=== PATIENT | female | born 1995 | race Two or more races ===

== ENCOUNTER 2021-09-21 13:59 | Outpatient (CLI) | payer OTHER | END 2021-09-21 15:30 | disposition home or self-care (01) | LOC: PRENATAL 13:59 | PROVIDERS: ATTEND Obstetrics & Gynecology Maternal & Fetal Medicine | DX: Z36.89 Encounter for other specified antenatal screening (principal); O36.80X1 Pregnancy with inconclusive fetal viability, fetus 1; Z3A.13 13 weeks gestation of pregnancy ==

== ENCOUNTER 2021-11-08 07:45 | Outpatient (CLI) | payer OTHER ==
[2021-11-08] MEDS ORDERED: PRENATAL CAPLE1 EAC1 (14:52)
[2021-11-08] MEDS ORDERED: FOLIC ACID20 MG (14:53)
[2021-11-08] MEDS ORDERED: PROMETRIUM200 MG PO (18:12)
[2021-11-08] MEDS ORDERED: KEFLEX750 MG PO (18:13)
[2021-11-08] MEDS ORDERED: METRONIDAZOLE500 MG PO (18:14)
== END 2021-11-08 09:45 | disposition home or self-care (01) ==
LOC: PRENATAL 07:45
PROVIDERS: ATTEND Obstetrics & Gynecology Maternal & Fetal Medicine
DX: O35.0XX1 Maternal care for (suspected) central nervous system malformation in fetus, fetus 1 (principal); O35.3XX1 Maternal care for (suspected) damage to fetus from viral disease in mother, fetus 1; O98.512 Other viral diseases complicating pregnancy, second trimester; Z36.89 Encounter for other specified antenatal screening; Z3A.20 20 weeks gestation of pregnancy

== ENCOUNTER 2021-11-08 08:00 | Emergency (ER) | payer OTHER ==
[~2021-11-08] VITALS: Ht 157.5 cm; Wt 67.6 kg
[2021-11-08] MEDS ORDERED: PRENATAL CAPLE1 EAC1 (14:52)
[2021-11-08] MEDS ORDERED: FOLIC ACID20 MG (14:53)
[2021-11-08] MEDS ORDERED: PROMETRIUM200 MG PO (18:12)
[2021-11-08] MEDS ORDERED: KEFLEX750 MG PO (18:13)
[2021-11-08] MEDS ORDERED: METRONIDAZOLE500 MG PO (18:14)
== END 2021-11-08 10:00 | disposition home or self-care (01) ==
LOC: CIR.AMB 08:00 → OBS/DEL 08:00 → CIR.AMB 10:00 → OBS/DEL 10:00 → LDR 14:15 → EDSTATUS 11-09 10:40
DX: O34.32 Maternal care for cervical incompetence, second trimester (principal); Z3A.20 20 weeks gestation of pregnancy; Z11.52 Encounter for screening for COVID-19

== ENCOUNTER 2022-01-11 08:45 | Outpatient (CLI) | payer OTHER ==
[~2022-01-11 08:45] MED LIST: FOLIC ACID20 MG; KEFLEX750 MG PO; METRONIDAZOLE500 MG PO; PRENATAL CAPLE1 EAC1; PROMETRIUM200 MG PO
== END 2022-01-11 09:46 | disposition home or self-care (01) ==
LOC: PRENATAL 08:45
PROVIDERS: ATTEND Obstetrics & Gynecology Maternal & Fetal Medicine
DX: O09.299 Supervision of pregnancy with other poor reproductive or obstetric history, unspecified trimester (principal); O34.30 Maternal care for cervical incompetence, unspecified trimester

== ENCOUNTER 2022-08-22 06:12 | Day surgery (SDC) | payer OTHER ==
[~2022-08-22 06:12] MED LIST changes: +PRENATAL PO; +[UNRECOGNIZED DRUG - OTHER]
== END 2022-08-22 14:25 | disposition home or self-care (01) ==
LOC: CIR.AMB 06:12
PROVIDERS: ATTEND Obstetrics & Gynecology Maternal & Fetal Medicine
DX: O34.31 Maternal care for cervical incompetence, first trimester (principal); Z3A.13 13 weeks gestation of pregnancy

== ENCOUNTER 2022-10-17 04:56 | Emergency (ER) | payer OTHER ==
[~2022-10-17] VITALS: Ht 157.5 cm; Wt 78.9 kg
[2022-10-17] MEDS ORDERED: PRENATABS RX T1 EACH (05:01)
== END 2022-10-17 11:35 ==
LOC: ER 04:56
DX: O26.899 Other specified pregnancy related conditions, unspecified trimester (principal); R10.2 Pelvic and perineal pain

== ENCOUNTER 2022-10-31 10:52 | Outpatient (CLI) | payer OTHER ==
[~2022-10-31 10:52] MED LIST changes: +PRENATABS RX T1 EACH
== END 2022-10-31 12:02 | disposition home or self-care (01) ==
LOC: NST 10:52
PROVIDERS: ATTEND Obstetrics & Gynecology Maternal & Fetal Medicine
DX: Z34.82 Encounter for supervision of other normal pregnancy, second trimester (principal)

== ENCOUNTER 2022-11-12 08:02 | Outpatient (CLI) | payer OTHER | END 2022-11-12 08:35 | disposition home or self-care (01) | LOC: NST 08:02 | PROVIDERS: ATTEND Obstetrics & Gynecology Maternal & Fetal Medicine | DX: Z34.82 Encounter for supervision of other normal pregnancy, second trimester (principal) ==

== ENCOUNTER 2022-11-21 09:21 | Outpatient (CLI) | payer OTHER | END 2022-11-21 10:22 | disposition home or self-care (01) | LOC: NST 09:21 | PROVIDERS: ATTEND Obstetrics & Gynecology Maternal & Fetal Medicine | DX: Z34.82 Encounter for supervision of other normal pregnancy, second trimester (principal) ==

== ENCOUNTER 2023-01-24 17:34 | Outpatient (CLI) | payer OTHER | END 2023-01-24 18:52 | disposition home or self-care (01) | LOC: NST 17:34 | PROVIDERS: ATTEND Obstetrics & Gynecology Gynecology | DX: Z34.83 Encounter for supervision of other normal pregnancy, third trimester (principal) ==

== ENCOUNTER 2023-02-03 14:19 | Inpatient (IN) | payer OTHER ==
[~2023-02-03] VITALS: Ht 157.5 cm; Wt 83.5 kg
[2023-02-03] MEDS ORDERED: NIFEDIPINE20 MG PO (15:06)
[2023-02-04] MEDS ORDERED: ENOXAPARIN40 MG/0.4 (14:35)
[2023-02-04] MEDS ORDERED: PROGESTERONE200 MG (14:35)
[2023-02-04] MEDS ORDERED: NIFEDIPINE ER30 M1 (14:35)
== END 2023-02-06 13:20 | disposition home or self-care (01) | DRG 807 ==
LOC: LDR 14:19 → OB/GYN 14:19
PROVIDERS: ADMIT Obstetrics & Gynecology; ATTEND Obstetrics & Gynecology
PROC: 4A1HXCZ Monitoring of Products of Conception, Cardiac Rate, External Approach (ICD-10-PCS; 2023-02-03)
PROC: 10E0XZZ Delivery of Products of Conception, External Approach (ICD-10-PCS; principal; 2023-02-04)
PROC: 0UQG7ZZ Repair Vagina, Via Natural or Artificial Opening (ICD-10-PCS; 2023-02-04)
DX: O71.4 Obstetric high vaginal laceration alone (principal); Z37.0 Single live birth; Z3A.36 36 weeks gestation of pregnancy; Z20.822 Contact with and (suspected) exposure to COVID-19

== ENCOUNTER 2025-03-03 05:38 | Day surgery (SDC) | payer OTHER ==
[2025-03-01 09:09] LABS: HEMATOCRIT 37.3 % (36.0-45.00); HEMOGLOBIN 12.7 g/dL (12.0-15.00); MEAN CORPUSCULAR HEMOGLOBIN 29.3 pg (27.00-32.0); MEAN CORPUSCULAR HGB CONC 34.1 g/dl (32.0-36.0); PLATELET COUNT 270 K/uL (150-450); RED BLOOD COUNT 4.34 M/uL (4.00-6.00); RED CELL DISTRIBUTION WIDTH 14.3 % (11.5-14.5)
[2025-03-01 09:51] LABS: INR 0.94; PARTIAL THROMBOPLASTIN TIME 27.6 SECONDS (22.0-34.0); PROTHROMBIN TIME 10.3 SECONDS (9.0-11.5)
[2025-03-01 09:56] LABS: ALBUMIN 3.2 gm/dL (3.4-5.0); BILIRUBIN TOTAL 0.42 mg/dL (0.3-1.2); CALCIUM 8.7 mg/dL (8.5-10.1); CREATININE SERUM 0.51 mg/dL (0.55-1.02); GFR 140.65; GLOBULINA 3.8 G/DL (2.4-3.5); POTASSIUM 3.96 mEq/L (3.5-5.1)
[~2025-03-03 05:38] MED LIST changes: +ENOXAPARIN40 MG/0.4; +NIFEDIPINE ER30 M1; +NIFEDIPINE20 MG PO; +PROGESTERONE200 MG
[2025-03-03] MEDS ORDERED: POVIDONE-IODINE 118 ML BOTT TOP ONE (07:05)
[2025-03-03] MEDS ORDERED: CITRIC ACID/SODIUM CITRATE 30 ML BLIST.PACK PO ONE (07:12)
== END 2025-03-03 11:40 | disposition home or self-care (01) ==
LOC: CIR.AMB 05:38
PROVIDERS: ATTEND Obstetrics & Gynecology Maternal & Fetal Medicine
DX: O34.32 Maternal care for cervical incompetence, second trimester (principal); Z3A.14 14 weeks gestation of pregnancy

== ENCOUNTER 2025-07-13 11:00 | Outpatient (CLI) | payer OTHER ==
[2025-07-13] MEDS ORDERED: PEPCID AC20 MG PO (18:05)
== END 2025-07-13 11:53 | disposition home or self-care (01) ==
LOC: NST 11:00
PROVIDERS: ATTEND Obstetrics & Gynecology
DX: Z34.83 Encounter for supervision of other normal pregnancy, third trimester (principal)

== ENCOUNTER 2025-07-13 12:51 | Outpatient (CLI) | payer OTHER ==
[2025-07-13] MEDS ORDERED: RINGERS SOLUTION,LACTATED 1,000 ML IV SCH ×2 (13:00→13:45)
[2025-07-13] MEDS ORDERED: MAGNESIUM SULFATE IN WATER 100 ML IV ONE (13:00)
[2025-07-13 13:01] VITALS: BP 103/69
[2025-07-13] MEDS ORDERED: MAGNESIUM SULFATE IN WATER 500 ML IV SCH (13:15)
[2025-07-13 15:15] VITALS: BP 97/67
[2025-07-13] MEDS ORDERED: PEPCID AC20 MG PO (18:05)
[2025-07-13 20:00] VITALS: BP 102/69
[2025-07-13 23:43] VITALS: BP 109/73
[2025-07-14 03:09] VITALS: BP 106/66
[2025-07-14 07:56] VITALS: BP 104/72; O2SAT 97
[2025-07-14 09:25] VITALS: BP 104/72
== END 2025-07-14 09:48 | disposition home or self-care (01) ==
LOC: OBS/DEL 12:51
PROVIDERS: ATTEND Obstetrics & Gynecology Gynecology
DX: O26.893 Other specified pregnancy related conditions, third trimester (principal); Z3A.32 32 weeks gestation of pregnancy

== ENCOUNTER 2025-08-19 08:21 | Outpatient (CLI) | payer OTHER ==
[2025-08-19 08:00] VITALS: BP 134/72
[2025-08-19 08:15] VITALS: BP 134/72
[~2025-08-19 08:21] MED LIST changes: +PEPCID AC20 MG PO
[2025-08-19 10:24] VITALS: BP 134/72
== END 2025-08-19 10:50 | disposition home or self-care (01) ==
LOC: OBS/DEL 08:21
PROVIDERS: ATTEND Obstetrics & Gynecology
DX: O26.893 Other specified pregnancy related conditions, third trimester (principal); Z3A.38 38 weeks gestation of pregnancy

== ENCOUNTER 2025-08-24 17:23 | Inpatient (IN) | payer OTHER ==
[~2025-08-24] VITALS: Ht 157.5 cm; Wt 88.0 kg
[2025-08-24 17:38] VITALS: BP 128/80
[2025-08-24 18:15] LABS: BASO % 0.2 % (0.1-1.2); EOS # 0.06 (0.04-0.54); EOS % 0.7 % (0.7-7.0); LYMPH # 1.45 (1.18-3.74); LYMPH % 17.7 % (19.3-53.1); MEAN PLATELET VOLUME 11.50 fl (9.4-12.4); MONO # 0.70 (0.24-0.82); MONO % 8.6 % (4.7-12.5); NEUT # 5.90 (1.56-6.13); NEUT % 72.2 % (34.0-71.1); RED CELL DISTRIBUTION WIDTH 14.7 % (11.6-14.4)
[2025-08-24] MEDS ORDERED: RINGERS SOLUTION,LACTATED 1,000 ML IV SCH (18:30)
[2025-08-24 18:45] LABS: INR 0.97
[2025-08-24 18:55] LABS: ALT/SGPT 16.0 U/L (12-78); AST/SGOT 20.0 U/L (15-37); BILIRUBIN TOTAL 0.44 mg/dL (0.3-1.2); BUN CREA RATIO 14.0 (7.0-25.0); CREATININE SERUM 0.86 mg/dL (0.55-1.02); GFR 76.96; GLOBULINA 3.3 G/DL (2.4-3.5); GLUCOSE FASTING 96.0 mg/dL (65-100); OSMOLALITY SERUM 281.0 MOSM/KG (275-295)
[2025-08-24 19:20] VITALS: BP 135/86
[2025-08-24 20:05] LABS: URINE APPEARANCE Cloudy; URINE BILIRRUBIN Small (NEGATIVE); URINE BLOOD Negative; URINE COLOR Dark Yellow; URINE GLUCOSE Negative (NEGATIVE); URINE KETONE Trace (NEGATIVE); URINE LEUKOCYTE Small; URINE NITRATE Negative; URINE UROBILINOGEN 1.0 E.U./dl
[2025-08-24 20:06] LABS: URINE CAST 9.23 uL (0.0-1.40); URINE EPITHELIAL CELLS 34.4 uL (0.0-38.8); URINE RBC 6.1 uL (0.0-20.8); URINE WBC 288.9 uL (0.0-23.2)
[2025-08-24 20:36] LABS: URINE BACTERIA > 9821.5 uL (0.0-1933); URINE PROTEIN 300 (NEGATIVE)
[2025-08-24 23:33] VITALS: BP 131/79
[2025-08-25 03:13] VITALS: BP 132/83
[2025-08-25] MEDS ORDERED: OXYTOCIN 500 ML IV ONE (07:00)
[2025-08-25 07:34] VITALS: BP 130/72
[2025-08-25 11:20] VITALS: BP 120/72
[2025-08-25] MEDS ORDERED: LIDOCAINE HCL 1% 10ML VIAL ONE (12:24)
[2025-08-25] MEDS ORDERED: CHLORHEXIDINE GLUCONATE 120 ML BOTTLE TOP ONE ×2 (12:24→15:30)
[2025-08-25] MEDS ORDERED: OXYTOCIN 20 UNITS/1000ML RL PIGGYBAG IV ONE (12:24)
[2025-08-25] MEDS ORDERED: ERYTHROMYCIN BASE OPHT 1GM EACH TUBE OP ONE ×2 (12:24→15:30)
[2025-08-25 15:00] VITALS: BP 124/71
[2025-08-25] MEDS ORDERED: OXYTOCIN 1,000 ML IV SCH (15:00)
[2025-08-25] MEDS ORDERED: ACETAMINOPHEN WITH CODEINE 1 UDTAB TABLET PO PRN (15:00)
[2025-08-25] MEDS ORDERED: LIDOCAINE HCL 1% 10ML VIAL IJ ONE (15:30)
[2025-08-25 15:58] VITALS: BP 134/69
[2025-08-25 20:16] VITALS: BP 133/80
[2025-08-26 01:56] VITALS: BP 118/80
[2025-08-26 08:00] VITALS: BP 134/85
[2025-08-26 20:24] VITALS: BP 141/80
[2025-08-27 01:12] VITALS: BP 116/75
[2025-08-27 08:00] VITALS: BP 136/85
== END 2025-08-27 14:28 | disposition home or self-care (01) | DRG 807 ==
LOC: LDR 17:23 → OB/GYN 18:09 → LDR 18:14 → OB/GYN 08-25 16:30
PROVIDERS: ADMIT Obstetrics & Gynecology; ATTEND Obstetrics & Gynecology
PROC: 4A1HXCZ Monitoring of Products of Conception, Cardiac Rate, External Approach (ICD-10-PCS; 2025-08-24)
PROC: 10E0XZZ Delivery of Products of Conception, External Approach (ICD-10-PCS; principal; 2025-08-25)
PROC: 0HQ9XZZ Repair Perineum Skin, External Approach (ICD-10-PCS; 2025-08-25)
DX: O70.0 First degree perineal laceration during delivery (principal); Z37.0 Single live birth; O69.81X0 Labor and delivery complicated by cord around neck, without compression, not applicable or unspecified; Z3A.39 39 weeks gestation of pregnancy